=== PATIENT | female | born 1965 | race Caucasian/White ===

== ENCOUNTER 2018-11-25 10:15 | Emergency (ER) | payer BC ==
[~2018-11-25] VITALS: Ht 165.1 cm; Wt 63.5 kg
[2018-11-25] MEDS ORDERED: ESCI20TA45 (10:32)
[2018-11-25] MEDS ORDERED: ERGO50006 (10:32)
[2018-11-25] MEDS ORDERED: ALPR0.254 (10:32)
[2018-11-25 10:52] LABS: BILIRUBIN,URINE NEGATIVE (NEGATIVE); CLARITY,URINE CLEAR; COLOR,URINE YELLOW; GLUCOSE, URINE (UA) NEGATIVE (NEGATIVE); KETONES,URINE NEGATIVE (NEGATIVE); LEUKOCYTE ESTERASE ,URINE NEGATIVE (NEGATIVE); NITRITE,URINE NEGATIVE (NEGATIVE); PH,URINE 7 (5-9); PROTEIN,URINE 1+ (NEGATIVE); UROBILINOGEN,URINE NORMAL (NORMAL)
[2018-11-25] MEDS ORDERED: ORPHENADRINE 60 MG/2 ML (NORFLEX) AMP IM ONE (11:00)
[2018-11-25] MEDS ORDERED: KETOROLAC 30 MG/ML VIAL IM ONE (11:00)
[2018-11-25 11:01] LABS: BACTERIA,URINE TRACE /HPF
--- NOTE | 2018-11-25 11:01 | ED Back Pain ---
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 STATES THIS HAPPENED BEFORE 3 YEARS AGO WHEN SHE BROKE A RIB. Nursing Sepsis Screen: No Definite Risk Source of Information: Patient Exam Limitations: No Limitations History of Present Illness Date Seen by Provider: Nov 25, 2018 Time Seen by Provider: 11:00 Initial Comments Right anterolateral lower rib pain that began this morning. She describes it as "spasms". History of the same pain 3 years ago when she bent over the railing typical for her dog. She had a recurrence of the pain last night without injury. Location: T-Spine, Other (right lateral chest wall) Timing/Duration: 1-2 Days Severity: Moderate, Severe Associated Symptoms: denies symptoms Allergies and Home Medications Allergies Coded Allergies: No Known Drug Allergies (Unverified , 11/25/18) Patient Home Medication List Home Medication List Reviewed: Yes Review of Systems Constitutional: see HPI EENTM: see HPI Respiratory: no symptoms reported Cardiovascular: no symptoms reported Genitourinary: no symptoms reported Musculoskeletal: see HPI Skin: no symptoms reported Psychiatric/Neurological: No Symptoms Reported Past [id number] Hx Patient Social History Alcohol Use: Occasionally Uses Recreational Drug Use: No Smoking Status: Current Everyday Smoker Recent Foreign Travel: No Contact w/Someone Who Travel: No Recent Infectious Disease Expo: No Recent Hopitalizations: No Seasonal Allergies Seasonal Allergies: No Past Medical History Surgeries: Yes (GLAND REMOVED) Section, Tubal Ligation Respiratory: No Cardiac: No Neurological: No Genitourinary: No Gastrointestinal: No Musculoskeletal: No Endocrine: Yes Hyperthyroidism HEENT: No Cancer: No Psychosocial: Yes Anxiety Integumentary: No Physical Exam Vital Signs Vital Signs - First Documented 11/25/18 10:19 Temp 98.0 Pulse 110 Resp 16 B/P (MAP) 132/97 (109) Pulse Ox 92 O2 Delivery Room Air Capillary Refill : Less Than 3 Seconds Height, Weight, BMI Height: 5'5.00" Weight: 140lbs. oz. 63.288751qy; BMI Method:Estimated General Appearance: No Apparent Distress, WD/WN HEENT: PERRL/EOMI, TMs Normal Neck: Full Range of Motion, Normal Inspection Respiratory: No Accessory Muscle Use, No Respiratory Distress Gastrointestinal: Normal Bowel Sounds, Non Tender, Soft Extremity: Normal Capillary Refill, Normal Inspection Neurologic/Psychiatric: Alert, Oriented x3 Skin: Normal Color, Warm/Dry Progress/Results/Core Measures Results/Orders Lab Results Laboratory Tests Test 11/25/18 10:39 Range/Units Urine Color YELLOW Urine Clarity CLEAR Urine pH 7 5-9 Urine Specific [place] 1.010 L 1.016-1.022 Urine Protein 1+ H NEGATIVE Urine Glucose (UA) NEGATIVE NEGATIVE Urine Ketones NEGATIVE NEGATIVE Urine Nitrite NEGATIVE NEGATIVE Urine Bilirubin NEGATIVE NEGATIVE Urine Urobilinogen NORMAL NORMAL MG/DL Urine Leukocyte Esterase NEGATIVE NEGATIVE Urine RBC (Auto) NEGATIVE NEGATIVE Urine RBC NONE /HPF Urine WBC NONE /HPF Urine Squamous Epithelial Cells 2-5 /HPF Urine Crystals NONE /LPF Urine Bacteria TRACE /HPF Urine Casts NONE /LPF Urine Mucus NEGATIVE /LPF Urine Culture Indicated NO My Orders Orders - BARBY TRIVEDI APRN Ketorolac Injection (Toradol Injection) (11/25/18 11:00) Orphenadrine Injection (Norflex Injectio (11/25/18 11:00) Medications Given in ED Current Medications Medications Dose Ordered Sig/Familia Route Start Time Stop Time Status Last Admin Dose Admin Ketorolac Tromethamine 60 mg ONCE ONCE IM 11/25/18 11:00 11/25/18 11:01 DC 11/25/18 11:05 60 MG Orphenadrine Citrate 60 mg ONCE ONCE IM 11/25/18 11:00 11/25/18 11:01 DC 11/25/18 11:05 60 MG Vital Signs/I&O 11/25/18 10:19 Temp 98.0 Pulse 110 Resp 16 B/P (MAP) 132/97 (109) Pulse Ox 92 O2 Delivery Room Air Blood Pressure Mean: 109 Departure Communication (Admissions) 1123-patient is still moaning loudly. Discussed with her possible other etiologies of pain. 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 She is here from [place] for [employer] training now. She assures me this is her back causing the pain and does not need further workup. Impression Primary Impression: Chest wall pain Disposition: HOME, SELF-CARE Condition: Stable Departure-Patient Inst. Decision time for Depature: 11:01 Referrals: NO,LOCAL PHYSICIAN (PCP/Family) Primary Care Physician Patient Instructions: NO INSTRUCTIONS GIVEN Add. Discharge Instructions: 1. Return to [facility] for any concerns 2 Follow up with your doctor next week 3. All discharge instructions reviewed with patient and/or family. Voiced understanding. Scripts Methocarbamol (Robaxin-750) 750 Mg Tablet 750 MG PO Q4H PRN for PAIN-MODERATE, #30 TAB Prov: BARBY TRIVEDI APRN 11/25/18 Prednisone (Prednisone) 20 Mg Tab 40 MG PO DAILY, #6 TAB 0 Refills Prov: BARBY TRIVEDI APRN 11/25/18 Images Torso/Trunk 1 - Other-See Progress Note BARBY TRIVEDI APRN Nov 25, 2018 11:01
--- NOTE | 2018-11-25 11:05 | Diagnostic Imaging Report ---
INDICATION: Pain. Two views of the chest were obtained. FINDINGS: The heart size, mediastinal configuration, and pulmonary vascularity are within normal limits. There is no pleural effusion, pneumothorax, or pneumonia. The osseous structures are unremarkable. IMPRESSION: No acute cardiopulmonary abnormality. Dictated by: Dictated on workstation # [id number]
--- NOTE | 2018-11-25 11:06 | Diagnostic Imaging Report ---
INDICATION: Pain. Three views of the right ribs were obtained. FINDINGS: Right lung is clear. No pleural effusion or pneumothorax. There are no displaced rib fractures. IMPRESSION: No displaced rib fractures. Dictated by: Dictated on workstation # [id number]
--- NOTE | 2018-11-25 11:23 | NUR ---
BARBY IN TALKING TO PT AT THIS TIME.
[2018-11-25] MEDS ORDERED: METH-313 PO (11:26)
[2018-11-25] MEDS ORDERED: PRD20T PO (11:26)
[2018-11-25 11:31] VITALS: BP 132/97
[2018-11-25 11:46] LABS: AMPHETAMINE SCREEN, URINE NEGATIVE (NEGATIVE); BARBITURATE SCREEN URINE NEGATIVE (NEGATIVE); BENZODIAZEPINES SCREEN URINE POSITIVE (NEGATIVE); CANNABINOID SCREEN, URINE NEGATIVE (NEGATIVE); COCAINE SCREEN URINE NEGATIVE (NEGATIVE); METHADONE STAT NEGATIVE (NEGATIVE); METHAMPHETAMINE SCREEN URINE S NEGATIVE (NEGATIVE); OPIATE SCREEN URINE NEGATIVE (NEGATIVE); OXYCODONE STAT NEGATIVE (NEGATIVE); PROPOXYPHENE STAT NEGATIVE (NEGATIVE); TRICYCLIC ANTIDEPRESSANTS SCRE NEGATIVE (NEGATIVE)
== END 2018-11-25 11:31 | disposition home or self-care (01) ==
LOC: ER 10:17
DX: R07.89 Other chest pain (principal); E05.90 Thyrotoxicosis, unspecified without thyrotoxic crisis or storm; F41.9 Anxiety disorder, unspecified; F17.200 Nicotine dependence, unspecified, uncomplicated; Z98.51 Tubal ligation status
CPT/HCPCS: 71046; 71100; 80306; 81000